=== PATIENT | male | born 1985 | race Two or more races ===

== ENCOUNTER 2024-02-01 16:57 | Emergency (ER) | payer SELFPAY ==
[~2024-02-01] VITALS: Ht 172.7 cm; Wt 54.4 kg
[2024-02-01 17:21] VITALS: BP 105/64; PULSE 90; RESP 16; TEMP 98; O2SAT 97
[2024-02-01] MEDS ORDERED: NAP500T PO (17:39)
== END 2024-02-01 17:58 | disposition home or self-care (01) ==
LOC: ER 16:59
DX: S62.336A Displaced fracture of neck of fifth metacarpal bone, right hand, initial encounter for closed fracture (principal); X58.XXXA Exposure to other specified factors, initial encounter; Y93.89 Activity, other specified; Y92.89 Other specified places as the place of occurrence of the external cause; Y99.8 Other external cause status
CPT/HCPCS: 29125; 73130